=== PATIENT | female | born 1975 | race Hispanic/Latino ===

== ENCOUNTER 2018-02-14 13:00 | Inpatient (IN) | payer BC ==
[~2018-02-14] VITALS: Ht 157.5 cm; Wt 74.8 kg
[2018-02-14] VITALS (11 sets, daily range): BP systolic 103–147; BP diastolic 52–85
[2018-02-14 14:02] LABS: BASOPHILS % (AUTO) 0.7 % (0.0-5.0); EOSINOPHILS % (AUTO) 1.2 % (0.0-8.0); LYMPHOCYTES % (AUTO) 21.9 % (21.0-51.0); MEAN CORPUSCULAR HEMOGLOBIN 15.2 pg (27.0-33.0); MEAN CORPUSCULAR VOLUME 54.2 fL (79-99); MONOCYTES % (AUTO) 4.3 % (3.0-13.0); NEUTROPHILS % (AUTO) 71.9 % (40.0-77.0); NUCLEATED RED BLOOD CELLS 0.1 % (0.0-0.19); PLATELET COUNT (AUTO) 464 K/uL (130-400); RED BLOOD CELL COUNT(AUTO) 3.54 MIL/uL (4.00-5.50); RED CELL DISTRIBUTION WIDTH 21.4 % (11.0-15.5); WHITE BLOOD COUNT (AUTO) 7.4 K/uL (4.8-10.8)
[2018-02-14] MEDS ORDERED: [UNRECOGNIZED DRUG - OTHER] PO (14:04)
[2018-02-14 14:35] LABS: HEMATOCRIT 19.2 % (36-48)
[2018-02-14] MEDS ORDERED: SODIUM CHLORIDE 0.9% 1000ML 1,000 ML IV SCH (17:15)
[2018-02-15] VITALS (22 sets, daily range): BP systolic 97–156; BP diastolic 49–79
[2018-02-15] MEDS: LACTATED RINGERS 1000ML 1,000 ML IV SCH (02:08)
[2018-02-15 04:37] LABS: HEMATOCRIT 24.7 % (36-48)
[2018-02-15] MEDS: CEFAZOLIN SODIUM 1 GM VIAL IVP ONE ×2 (07:20→08:50)
[2018-02-15] MEDS ORDERED: KETAMINE HCL 100 MG/ML 5ML VIAL IJ ONE (07:48)
[2018-02-15] MEDS ORDERED: WATER FOR INJECTION,STERILE 20 ML VIAL IJ ONE (08:00)
[2018-02-15] MEDS ORDERED: LACTATED RINGERS 1000ML 1,000 ML IV SCH (08:00)
[2018-02-15] MEDS ORDERED: MAGNESIUM SULFATE 1 GM/2 ML VIAL ONE (08:05)
[2018-02-15] MEDS ORDERED: ROCURONIUM BROMIDE 10MG/1ML 5ML VL ONE (08:06)
[2018-02-15] MEDS ORDERED: LIDOCAINE PF 2% 5ML ABBOJECT ONE (08:06)
[2018-02-15] MEDS ORDERED: SUCCINYLCHOLINE CHLORIDE 20 MG/ML 10 ML VIAL ONE (08:06)
[2018-02-15] MEDS ORDERED: PROPOFOL 10 MG/ML 20ML VIAL IV ONE (08:06)
[2018-02-15] MEDS ORDERED: MIDAZOLAM HCL 1 MG/ML 2ML VIAL ONE (08:12)
[2018-02-15 11:10] LABS: HEMATOCRIT 33.1 % (36-48)
[2018-02-15] MEDS ORDERED: FENTANYL CITRATE PF 50 MCG/1 ML 2ML VIAL ONE (11:11)
[2018-02-15] MEDS ORDERED: MICROFIBRILLAR COLLAGEN 1 GM PACKAGE TP ONE (11:16)
[2018-02-15 11:20] LABS: CREATININE 0.4 mg/dL (0.5-1.5); POTASSIUM 4.8 mmol/L (3.5-5.1)
[2018-02-15] MEDS ORDERED: FENTANYL CITRATE PF 50 MCG/1 ML 5ML AMP IV ONE (11:30)
[2018-02-15] MEDS ORDERED: MEPERIDINE-PF 50 MG/ML SYG ONE (12:16)
[2018-02-15] MEDS ORDERED: PROMETHAZINE HCL 25 MG/ML 1ML AMPULE IM ONE ×2 (12:18→15:15)
[2018-02-15] MEDS ORDERED: PROMETHAZINE HCL 25 MG/ML 1ML AMPULE IM PRN (14:45)
[2018-02-15] MEDS ORDERED: MEPERIDINE-PF 75 MG/ML SYG IVP PRN (14:45)
[2018-02-15] MEDS ORDERED: MEPERIDINE-PF 75 MG/ML SYG ONE (15:15)
[2018-02-15] MEDS: DEXTROSE 5 %-0.45 % NACL 1,000 ML IV SCH (15:45)
[2018-02-15 18:14] LABS: HEMATOCRIT 36.8 % (36-48)
[2018-02-15] MEDS: PROMETHAZINE HCL 25 MG/ML 1ML AMPULE IM PRN ×2 (18:32→23:35)
[2018-02-15] MEDS: MEPERIDINE-PF 75 MG/ML SYG IM PRN ×2 (18:34→23:45)
[2018-02-16] MEDS: DEXTROSE 5 %-0.45 % NACL 1,000 ML IV SCH ×2 (02:31→08:56)
[2018-02-16 03:32] VITALS: BP 132/72
[2018-02-16] MEDS: PROMETHAZINE HCL 25 MG/ML 1ML AMPULE IM PRN ×2 (03:59→12:52)
[2018-02-16] MEDS: MEPERIDINE-PF 75 MG/ML SYG IM PRN ×3 (04:00→12:53)
[2018-02-16 06:10] LABS: BASOPHILS % (AUTO) 0.5 % (0.0-5.0); HEMATOCRIT 32.3 % (36-48); LYMPHOCYTES % (AUTO) 9.1 % (21.0-51.0); MEAN CORPUSCULAR HEMOGLOBIN 23.1 pg (27.0-33.0); MEAN CORPUSCULAR HGB CONC 32.1 g/dL (32.0-36.0); MEAN CORPUSCULAR VOLUME 71.8 fL (79-99); MONOCYTES % (AUTO) 6.3 % (3.0-13.0); NEUTROPHILS % (AUTO) 84.1 % (40.0-77.0); PLATELET COUNT (AUTO) 248 K/uL (130-400); RED CELL DISTRIBUTION WIDTH 32.6 % (11.0-15.5); WHITE BLOOD COUNT (AUTO) 13.6 K/uL (4.8-10.8)
[2018-02-16 07:54] VITALS: BP 136/77
[2018-02-16] MEDS ORDERED: CEFAZOLIN SODIUM 1 GM VIAL IVP SCH (09:15)
[2018-02-16] MEDS ORDERED: METRONIDAZOLE 500MG/100ML BAG 100 ML IVPB SCH (10:00)
[2018-02-16] MEDS: BENZOCAINE/MENTH/CETYLPYRD CL 1 EACH LOZENGE MM PRN (11:04)
[2018-02-16 11:30] VITALS: BP 137/77
[2018-02-16 15:34] VITALS: BP 141/78
[2018-02-16] MEDS ORDERED: HYDROCODONE/ACETAMINOPHEN 5/325 MG TAB PO PRN (16:00)
[2018-02-16] MEDS: CEFAZOLIN SODIUM 1 GM VIAL IVP SCH (17:38)
[2018-02-16] MEDS: METRONIDAZOLE 500MG/100ML BAG 100 ML IVPB SCH (17:43)
[2018-02-16] MEDS ORDERED: MEPERIDINE-PF 75 MG/ML SYG IM PRN (19:30)
[2018-02-16] MEDS ORDERED: PROMETHAZINE HCL 25 MG/ML 1ML AMPULE IM PRN (19:45)
[2018-02-16 19:47] VITALS: BP 121/62
[2018-02-16 23:40] VITALS: BP 143/79
[2018-02-17] MEDS: CEFAZOLIN SODIUM 1 GM VIAL IVP SCH ×3 (01:04→15:44)
[2018-02-17] MEDS: METRONIDAZOLE 500MG/100ML BAG 100 ML IVPB SCH ×3 (01:05→15:52)
[2018-02-17 02:54] VITALS: BP 146/90
[2018-02-17] MEDS: DEXTROSE 5 %-0.45 % NACL 1,000 ML IV SCH (05:50)
[2018-02-17 06:20] LABS: BASOPHILS % (AUTO) 0.6 % (0.0-5.0); EOSINOPHILS % (AUTO) 0.6 % (0.0-8.0); HEMATOCRIT 30.3 % (36-48); LYMPHOCYTES % (AUTO) 8.2 % (21.0-51.0); MEAN CORPUSCULAR HEMOGLOBIN 23.7 pg (27.0-33.0); MEAN CORPUSCULAR HGB CONC 32.8 g/dL (32.0-36.0); MEAN CORPUSCULAR VOLUME 72.2 fL (79-99); MONOCYTES % (AUTO) 5.5 % (3.0-13.0); NEUTROPHILS % (AUTO) 85.1 % (40.0-77.0); NUCLEATED RED BLOOD CELLS 0.1 % (0.0-0.19); PLATELET COUNT (AUTO) 210 K/uL (130-400); RED BLOOD CELL COUNT(AUTO) 4.19 MIL/uL (4.00-5.50); RED CELL DISTRIBUTION WIDTH 33.3 % (11.0-15.5)
[2018-02-17 06:28] LABS: POTASSIUM 3.3 mmol/L (3.5-5.1)
[2018-02-17 07:46] VITALS: BP 100/47
[2018-02-17] MEDS: ACETAMINOPHEN-CODEINE 300/30MG TAB PO PRN (08:13)
[2018-02-17] MEDS ORDERED: DEXTROSE IV SCH (08:45)
[2018-02-17] MEDS ORDERED: POTASSIUM CHLORIDE IV SCH (08:45)
[2018-02-17] MEDS ORDERED: NACL IV SCH (08:45)
[2018-02-17] MEDS ORDERED: METOCLOPRAMIDE 10 MG/2 ML VIAL IV PRN (09:00)
[2018-02-17] MEDS ORDERED: MORPHINE-NS 50 MG/50 ML 50 ML IV PRN (09:00)
[2018-02-17] MEDS ORDERED: DiphenhydrAMINE HCL 50 MG/ML VIAL IVP PRN (09:00)
[2018-02-17] MEDS ORDERED: NALOXONE HCL 0.4 MG/1 ML ML IVP PRN (09:00)
[2018-02-17] MEDS ORDERED: PROMETHAZINE HCL 25 MG/ML 1ML AMPULE IM PRN (09:00)
[2018-02-17] MEDS ORDERED: DIPHENHYDRAMINE HCL 25 MG CAPSULE PO PRN (09:00)
[2018-02-17] MEDS: D5W-1/2 NS/20MEQ KCL 1,000 ML IV SCH ×2 (09:34→17:42)
[2018-02-17 11:52] VITALS: BP 131/78
[2018-02-17 15:23] VITALS: BP 131/79
[2018-02-17 19:36] VITALS: BP 142/86
[2018-02-17 23:11] VITALS: BP 140/84
[2018-02-18] MEDS: CEFAZOLIN SODIUM 1 GM VIAL IVP SCH ×3 (00:51→17:20)
[2018-02-18] MEDS: METRONIDAZOLE 500MG/100ML BAG 100 ML IVPB SCH ×3 (02:05→17:23)
[2018-02-18] MEDS: D5W-1/2 NS/20MEQ KCL 1,000 ML IV SCH ×3 (03:26→23:38)
[2018-02-18 03:27] VITALS: BP 130/72
[2018-02-18 07:57] VITALS: BP 133/78
[2018-02-18 08:37] LABS: BASOPHILS % (AUTO) 0.9 % (0.0-5.0); EOSINOPHILS % (AUTO) 2.1 % (0.0-8.0); HEMATOCRIT 32.8 % (36-48); LYMPHOCYTES % (AUTO) 8.3 % (21.0-51.0); MEAN CORPUSCULAR HEMOGLOBIN 23.5 pg (27.0-33.0); MEAN CORPUSCULAR HGB CONC 32.2 g/dL (32.0-36.0); NEUTROPHILS % (AUTO) 83.7 % (40.0-77.0); PLATELET COUNT (AUTO) 209 K/uL (130-400); RED CELL DISTRIBUTION WIDTH 32.8 % (11.0-15.5); WHITE BLOOD COUNT (AUTO) 10.1 K/uL (4.8-10.8)
[2018-02-18 08:59] LABS: CREATININE 0.5 mg/dL (0.5-1.5); POTASSIUM 3.3 mmol/L (3.5-5.1)
[2018-02-18 11:46] VITALS: BP 121/73
[2018-02-18 16:20] VITALS: BP 127/77
[2018-02-18 19:41] VITALS: BP 132/68
[2018-02-18 23:27] VITALS: BP 135/73
[2018-02-19] MEDS: LACTATED RINGERS 1000ML 1,000 ML IV SCH (01:00)
[2018-02-19] MEDS: CEFAZOLIN SODIUM 1 GM VIAL IVP SCH ×3 (01:03→17:06)
[2018-02-19] MEDS: METRONIDAZOLE 500MG/100ML BAG 100 ML IVPB SCH ×3 (02:05→18:11)
[2018-02-19 03:28] VITALS: BP 131/73
[2018-02-19 05:21] LABS: HEMATOCRIT 28.2 % (36-48); MEAN CORPUSCULAR HGB CONC 32.5 g/dL (32.0-36.0); PLATELET COUNT (AUTO) 212 K/uL (130-400); RED BLOOD CELL COUNT(AUTO) 3.81 MIL/uL (4.00-5.50); RED CELL DISTRIBUTION WIDTH 31.8 % (11.0-15.5); WHITE BLOOD COUNT (AUTO) 6.4 K/uL (4.8-10.8)
[2018-02-19 05:29] LABS: CREATININE 0.5 mg/dL (0.5-1.5); POTASSIUM 3.4 mmol/L (3.5-5.1)
[2018-02-19 07:30] VITALS: BP 132/78
[2018-02-19] MEDS: ACETAMINOPHEN-CODEINE 300/30MG TAB PO PRN ×2 (08:32→18:56)
[2018-02-19] MEDS: D5W-1/2 NS/20MEQ KCL 1,000 ML IV SCH ×2 (08:39→17:06)
[2018-02-19 11:24] VITALS: BP 130/86
[2018-02-19 16:00] VITALS: BP_SYST 131; BP_SYST 137; BP_DIAS 79; BP_DIAS 86
[2018-02-19 19:50] VITALS: BP 117/76
[2018-02-19 23:02] VITALS: BP 127/74
[2018-02-20] MEDS: CEFAZOLIN SODIUM 1 GM VIAL IVP SCH ×3 (01:01→16:54)
[2018-02-20] MEDS: D5W-1/2 NS/20MEQ KCL 1,000 ML IV SCH ×3 (02:13→16:54)
[2018-02-20] MEDS: METRONIDAZOLE 500MG/100ML BAG 100 ML IVPB SCH ×3 (02:13→18:23)
[2018-02-20 03:41] VITALS: BP 134/75
[2018-02-20] MEDS: ACETAMINOPHEN-CODEINE 300/30MG TAB PO PRN ×2 (05:47→20:15)
[2018-02-20 07:45] VITALS: BP 127/70
[2018-02-20 11:14] VITALS: BP 123/74
[2018-02-20 16:18] VITALS: BP 110/75
[2018-02-20] MEDS: BENZOCAINE/MENTH/CETYLPYRD CL 1 EACH LOZENGE MM PRN (18:49)
[2018-02-20 20:00] VITALS: BP 127/82
[2018-02-21] MEDS: CEFAZOLIN SODIUM 1 GM VIAL IVP SCH ×3 (00:34→16:42)
[2018-02-21 00:45] VITALS: BP 128/73
[2018-02-21] MEDS: D5W-1/2 NS/20MEQ KCL 1,000 ML IV SCH (01:03)
[2018-02-21] MEDS: IBUPROFEN 800 MG TAB PO PRN ×2 (01:11→20:28)
[2018-02-21] MEDS: METRONIDAZOLE 500MG/100ML BAG 100 ML IVPB SCH ×3 (01:27→17:37)
[2018-02-21 03:59] VITALS: BP 130/71
[2018-02-21 07:58] VITALS: BP 139/78
[2018-02-21] MEDS: DOCUSATE SODIUM 100 MG CAP PO SCH ×2 (09:00→20:28)
[2018-02-21] MEDS: SODIUM CHLORIDE 0.9% 10 ML VIAL IV PRN ×2 (10:24→18:11)
[2018-02-21 11:22] VITALS: BP_SYST 137; BP_SYST 149; BP_DIAS 74; BP_DIAS 88
[2018-02-21 15:28] VITALS: BP 135/85
[2018-02-21] MEDS: ACETAMINOPHEN-CODEINE 300/30MG TAB PO PRN (16:40)
[2018-02-21 19:44] VITALS: BP 136/78
[2018-02-22 00:18] VITALS: BP 119/59
[2018-02-22] MEDS: METRONIDAZOLE 500MG/100ML BAG 100 ML IVPB SCH ×2 (01:36→09:55)
[2018-02-22] MEDS: CEFAZOLIN SODIUM 1 GM VIAL IVP SCH ×2 (01:36→09:55)
[2018-02-22 03:32] VITALS: BP 152/74
[2018-02-22 07:26] VITALS: BP 153/71
[2018-02-22] MEDS: DOCUSATE SODIUM 100 MG CAP PO SCH (09:00)
[2018-02-22] MEDS: IBUPROFEN 800 MG TAB PO PRN ×2 (09:39→16:03)
[2018-02-22 11:19] VITALS: BP 133/83
== END 2018-02-22 18:35 | disposition home or self-care (01) | DRG 743 ==
LOC: EDSTATUS 13:00 → WSH 15:56 → OBSVTOIN 15:56
PROVIDERS: ADMIT Obstetrics & Gynecology; ATTEND Obstetrics & Gynecology
PROC: 30233N1 Transfusion of Nonautologous Red Blood Cells into Peripheral Vein, Percutaneous Approach (ICD-10-PCS; 2018-02-14)
PROC: 30233K1 Transfusion of Nonautologous Frozen Plasma into Peripheral Vein, Percutaneous Approach (ICD-10-PCS; 2018-02-15)
PROC: 0UT00ZZ Resection of Right Ovary, Open Approach (ICD-10-PCS; principal; 2018-02-15 08:35)
PROC: 0UT50ZZ Resection of Right Fallopian Tube, Open Approach (ICD-10-PCS; 2018-02-15 08:35)
PROC: 0UT90ZZ Resection of Uterus, Open Approach (ICD-10-PCS; 2018-02-15 08:35)
DX: D25.9 Leiomyoma of uterus, unspecified (principal); D50.0 Iron deficiency anemia secondary to blood loss (chronic); N73.6 Female pelvic peritoneal adhesions (postinfective)
CPT/HCPCS: 36415; 36430; 80048; 80051; 84703; 85014; 85018; 85025; 85027; 86850; 86900; 86901; 86922; 86927; 88307; A4218; A4344; A4351; J0330; J0690; J2001; J2175; J2250; J2270; J2550; J2704; J3010; J3475; J3480; J3490; J7030; J7120; P9016; P9017